=== PATIENT | female | born 1970 | race Caucasian/White ===

== ENCOUNTER 2019-10-22 11:41 | Observation (INO) | payer BC, SELFPAY ==
[2019-10-22] MEDS ORDERED: Sodium Chloride 0.9% 10 ML Syringe FLUSH PRN (11:50)
[2019-10-22] MEDS ORDERED: Sodium Chloride 0.9% 2.5 ML Syringe FLUSH PRN (11:50)
[2019-10-22 12:21] LABS: BLOOD UREA NITROGEN,BUN 19 mg/dL (7.0-18.0); CARBON DIOXIDE,CO2 23.3 mmol/L (21.0-32.0); CHLORIDE,CL 105 mmol/L (98-107); GLUCOSE RANDOM 112 mg/dL (74-106); POTASSIUM,K 4.1 mmol/L (3.5-5.1); SODIUM,NA 141 mmol/L (136-145)
--- NOTE | 2019-10-22 12:38 | CR ---
Chest: Portable view of the chest was obtained. Comparison: No prior chest imaging. Heart size and mediastinum are normal. Lungs are clear with no acute parenchymal change. Scattered disc space narrowing and endplate spurring is noted within the spine. Impression: 1. Nothing acute is seen on portable chest x-ray. Diagnostic code #2 This report was dictated in [place] Standard Time
--- NOTE | 2019-10-22 13:10 | EDM.PDOC ---
ED HPI GENERAL MEDICAL PROBLEM - General Chief Complaint: Chest Pain Stated Complaint: HEART ATTACK Time Seen by Provider: 10/22/19 12:02 - History of Present Illness INITIAL COMMENTS - FREE TEXT/NARRATIVE: 49-year-old female history of TIA in the past presented to ER for sudden onset chest pain radiating to the left arm radiating to the left side of her jaw. The pain was associated with transient tingling in the left arm. IT was associated with diaphoresis and shortness of breath. Onset was around 11 AM day of presentation to ER. No nausea no vomiting no abdominal pain. The pain did not radiate to her back. The pain did not radiate to the abdomen. Via EMS the patient received aspirin also received sublingual nitro. after The sublingual nitro the pain improved. When I evaluated the patient the pain had improved. Numbness had resolved. Location: Reports: Chest Quality: Reports: Ache Severity: Moderate Improves with: Reports: Medication Associated Symptoms: Reports: Shortness of Breath Treatments RECEIVING ASSOCIATE: Reports: Aspirin Chest Pain Score (Numeric/FACES): 5 - Related Data Allergies Allergy/AdvReac Type Severity Reaction Status Date / Time codeine Allergy Other Verified 10/22/19 11:49 Home Meds: Home Meds . [No Known Home Meds] 10/22/19 [History] Past Medical History Musculoskeletal History: Reports: None Neurological History: Reports: TIA - Infectious Disease History Infectious Disease History: Reports: Chicken Pox, Measles - Past Surgical History Neurological Surgical History: Reports: None Musculoskeletal Surgical History: Reports: Arthroscopic Knee Other Musculoskeletal Surgeries/Procedures:: Left knee arthroscopy Social & Family History - Family History Family Medical History: Noncontributory - Tobacco Use Smoking Status *Q: Never Smoker Second Hand Smoke Exposure: No - Caffeine Use Caffeine Use: Reports: None - Recreational Drug Use Recreational Drug Use: No ED ROS GENERAL - Review of Systems Review Of Systems: See Below Constitutional: Reports: No Symptoms HEENT: Reports: No Symptoms Respiratory: Reports: No Symptoms Cardiovascular: Reports: Chest Pain Endocrine: Reports: No Symptoms GI/Abdominal: Reports: No Symptoms : Reports: No Symptoms Musculoskeletal: Reports: No Symptoms Skin: Reports: No Symptoms Neurological: Reports: No Symptoms Psychiatric: Reports: No Symptoms Hematologic/Lymphatic: Reports: No Symptoms Immunologic: Reports: No Symptoms ED EXAM, GENERAL - Physical Exam Exam: See Below Exam Limited By: Altered Mental Status General Appearance: Alert, No Apparent Distress Eye Exam: Bilateral Eye: EOMI Nose: Normal Inspection Throat/Mouth: Normal Inspection Head: Atraumatic, Normocephalic Neck: Supple, Non-Tender, Full Range of Motion Respiratory/Chest: No Respiratory Distress, Lungs Clear, Normal Breath Sounds, No Accessory Muscle Use Cardiovascular: Normal Peripheral Pulses, Regular Rate, Rhythm, No Edema, No Gallop, No JVD, No Murmur, No Rub Peripheral Pulses: 3+: Radial (L), Radial (R), Dorsalis Pedis (L), Dorsalis Pedis (R) GI/Abdominal: Soft, Non-Tender, No Organomegaly, No Distention (Female) Exam: Normal External Exam Rectal (Female) Exam: Normal Exam Back Exam: Normal Inspection Extremities: Non-Tender, No Pedal Edema, Other (no calf swelling or tenderness ) Neurological: Alert, Normal Cognition, Normal Gait, Normal Reflexes Psychiatric: Normal Affect Skin Exam: Warm EKG INTERPRETATION Rhythm: NSR QRS: Normal ST-T: Normal QT: Normal (no ischemic changes) Course - Vital Signs Last Recorded V/S: Last Vital Signs Temp 98.3 F 10/22/19 11:45 Pulse 84 10/22/19 13:15 Resp 16 10/22/19 13:15 BP 124/70 10/22/19 13:15 Pulse Ox 96 10/22/19 13:15 - Orders/Labs/Meds Orders: Active Orders 24 hr Category Date Time Status Admission Status [Patient Status] [ADT] Stat ADT 10/22/19 13:10 Ordered EKG Documentation Completion [RC] STAT Care 10/22/19 11:50 Active Sodium Chloride 0.9% [Saline Flush] Med 10/22/19 11:50 Active 10 ml FLUSH ASDIRECTED PRN Sodium Chloride 0.9% [Saline Flush] Med 10/22/19 11:50 Active 2.5 ml FLUSH ASDIRECTED PRN Saline Lock Insert [OM.PC] Stat Oth 10/22/19 11:50 Ordered Medication Orders Sodium Chloride (Saline Flush) 10 ml FLUSH ASDIRECTED PRN PRN Reason: Keep Vein Open Sodium Chloride (Saline Flush) 2.5 ml FLUSH ASDIRECTED PRN PRN Reason: Keep Vein Open Labs: Laboratory Tests 10/22/19 10/22/19 10/22/19 Range/Units 11:40 11:40 11:40 WBC 6.77 (4.0-11.0) K/uL RBC 4.74 (4.30-5.90) M/uL Hgb 14.0 (12.0-16.0) g/dL Hct 42.6 (36.0-46.0) % MCV 89.9 (80.0-98.0) fL MCH 29.5 (27.0-32.0) pg MCHC 32.9 (31.0-37.0) g/dL RDW Std Deviation 41.0 (28.0-62.0) fl RDW Coeff of Julia 12 (11.0-15.0) % Plt Count 232 (150-400) K/uL MPV 10.20 (7.40-12.00) fL Neut % (Auto) 46.7 L (48.0-80.0) % Lymph % (Auto) 40.3 H (16.0-40.0) % [place] % (Auto) 8.6 (0.0-15.0) % Eos % (Auto) 4.1 (0.0-7.0) % Baso % (Auto) 0.3 (0.0-1.5) % Neut # (Auto) 3.2 (1.4-5.7) K/uL Lymph # (Auto) 2.7 H (0.6-2.4) K/uL [place] # (Auto) 0.6 (0.0-0.8) K/uL Eos # (Auto) 0.3 (0.0-0.7) K/uL Baso # (Auto) 0.0 (0.0-0.1) K/uL Nucleated RBC % 0.0 /100WBC Nucleated RBCs # 0 K/uL INR 0.96 Sodium 141 (136-145) mmol/L Potassium 4.1 (3.5-5.1) mmol/L Chloride 105 (98-107) mmol/L Carbon Dioxide 23.3 (21.0-32.0) mmol/L BUN 19 H (7.0-18.0) mg/dL Creatinine 0.8 (0.6-1.0) mg/dL Est Cr Clr Drug Dosing 89.97 mL/min Estimated GFR (MDRD) > 60.0 ml/min Glucose 112 H (74-106) mg/dL Calcium 9.3 (8.5-10.1) mg/dL Total Bilirubin 0.7 (0.2-1.0) mg/dL AST 23 (15-37) IU/L ALT 33 (14-63) IU/L Alkaline Phosphatase 65 (46-116) U/L Troponin I < 0.050 (0.000-0.056) ng/mL Total Protein 7.6 (6.4-8.2) g/dL Albumin 3.9 (3.4-5.0) g/dL Globulin 3.7 (2.6-4.0) g/dL Albumin/Globulin Ratio 1.1 (0.9-1.6) Urine Color Urine Appearance Urine pH (5.0-8.0) Ur Specific [place] (1.001-1.035) Urine Protein (NEGATIVE) mg/dL Urine Glucose (UA) (NEGATIVE) mg/dL Urine Ketones (NEGATIVE) mg/dL Urine Occult Blood (NEGATIVE) Urine Nitrite (NEGATIVE) Urine Bilirubin (NEGATIVE) Urine Urobilinogen (<2.0) EU/dL Ur Leukocyte Esterase (NEGATIVE) 10/22/19 Range/Units 12:44 WBC (4.0-11.0) K/uL RBC (4.30-5.90) M/uL Hgb (12.0-16.0) g/dL Hct (36.0-46.0) % MCV (80.0-98.0) fL MCH (27.0-32.0) pg MCHC (31.0-37.0) g/dL RDW Std Deviation (28.0-62.0) fl RDW Coeff of Julia (11.0-15.0) % Plt Count (150-400) K/uL MPV (7.40-12.00) fL Neut % (Auto) (48.0-80.0) % Lymph % (Auto) (16.0-40.0) % [place] % (Auto) (0.0-15.0) % Eos % (Auto) (0.0-7.0) % Baso % (Auto) (0.0-1.5) % Neut # (Auto) (1.4-5.7) K/uL Lymph # (Auto) (0.6-2.4) K/uL [place] # (Auto) (0.0-0.8) K/uL Eos # (Auto) (0.0-0.7) K/uL Baso # (Auto) (0.0-0.1) K/uL Nucleated RBC % /100WBC Nucleated RBCs # K/uL INR Sodium (136-145) mmol/L Potassium (3.5-5.1) mmol/L Chloride (98-107) mmol/L Carbon Dioxide (21.0-32.0) mmol/L BUN (7.0-18.0) mg/dL Creatinine (0.6-1.0) mg/dL Est Cr Clr Drug Dosing mL/min Estimated GFR (MDRD) ml/min Glucose (74-106) mg/dL Calcium (8.5-10.1) mg/dL Total Bilirubin (0.2-1.0) mg/dL AST (15-37) IU/L ALT (14-63) IU/L Alkaline Phosphatase (46-116) U/L Troponin I (0.000-0.056) ng/mL Total Protein (6.4-8.2) g/dL Albumin (3.4-5.0) g/dL Globulin (2.6-4.0) g/dL Albumin/Globulin Ratio (0.9-1.6) Urine Color YELLOW Urine Appearance CLEAR Urine pH 5.0 (5.0-8.0) Ur Specific [place] >= 1.030 (1.001-1.035) Urine Protein NEGATIVE (NEGATIVE) mg/dL Urine Glucose (UA) NEGATIVE (NEGATIVE) mg/dL Urine Ketones NEGATIVE (NEGATIVE) mg/dL Urine Occult Blood NEGATIVE (NEGATIVE) Urine Nitrite NEGATIVE (NEGATIVE) Urine Bilirubin NEGATIVE (NEGATIVE) Urine Urobilinogen 0.2 (<2.0) EU/dL Ur Leukocyte Esterase NEGATIVE (NEGATIVE) Meds: Medications Generic Name Dose Route Start Last Admin Trade Name Freq PRN Reason Stop Dose Admin Sodium Chloride 10 ml 10/22/19 11:50 Saline Flush FLUSH ASDIRECTED PRN Keep Vein Open Sodium Chloride 2.5 ml 10/22/19 11:50 Saline Flush FLUSH ASDIRECTED PRN Keep Vein Open - Re-Assessments/Exams Free Text/Narrative Re-Assessment/Exam: 10/22/19 14:22 Patient presented with chest pain that improved after nitro. He did not show any ST elevation. First troponin was negative. On reassessment patient did not have any more chest pain. She will benefit from admission for further work- up. Serial troponins. CXR Negative. no risk Factors for PE. Patient discussed with Dr Zuleta. Departure - Departure Time of Disposition: 13:10 Disposition: Admitted As Inpatient 64 Clinical Impression: Chest pain Referrals: PCP,Unobtain [Primary Care Provider] - Forms: ED Department Discharge Sepsis Event Note - Evaluation Sepsis Screening Result: No Definite Risk - Focused Exam Vital Signs: Vital Signs Temp Pulse Resp BP Pulse Ox 10/22/19 13:15 84 16 124/70 96 10/22/19 12:45 84 134/73 97 10/22/19 12:15 84 18 128/71 97 10/22/19 11:45 98.3 F 104 H 20 137/90 95 Date Exam was Performed: 10/22/19 Time Exam was Performed: 14:19 - My Orders Last 24 Hours: My Active Orders 10/22/19 11:50 EKG Documentation Completion [RC] STAT Sodium Chloride 0.9% [Saline Flush] 10 ml FLUSH ASDIRECTED PRN Sodium Chloride 0.9% [Saline Flush] 2.5 ml FLUSH ASDIRECTED PRN Saline Lock Insert [OM.PC] Stat 10/22/19 13:10 Admission Status [Patient Status] [ADT] Stat - Assessment/Plan Last 24 Hours: My Active Orders 10/22/19 11:50 EKG Documentation Completion [RC] STAT Sodium Chloride 0.9% [Saline Flush] 10 ml FLUSH ASDIRECTED PRN Sodium Chloride 0.9% [Saline Flush] 2.5 ml FLUSH ASDIRECTED PRN Saline Lock Insert [OM.PC] Stat 10/22/19 13:10 Admission Status [Patient Status] [ADT] Stat
--- NOTE | 2019-10-22 14:27 | PCM.HP.2 ---
<Kasia Alonzo M - Last Filed: 10/22/19 14:40> H&P History of Present Illness - General Date of Service: 10/22/19 Admit Problem/Dx: Admission Diagnosis/Problem Admission Diagnosis/Problem Chest pain Source of Information: Patient History Limitations: Reports: No Limitations - History of Present Illness Initial Comments - Free Text/Narative: This 49 year old female with pmh of TIA and methamphetamine use (clean for 2 years) presented to the ED via EMS today with complaints of chest pain. She reports she was at work today, moving heavy 30 lb boxes around. She started to feel light headed and clammy. Then heaviness and chest pressure started "like some one is sitting on my chest". She reports the pain radiated to her L arm and posterior neck. But she is unsure if the neck pain started first or after the chest pain. She reports dyspnea as well. She was given Nitro x 3 by EMS as well as ASA. Pain improved with Nitro, but neck pain remains. She reports she started having some neck pain 1 week ago and saw chiropractor, she was adjusted , but muscle tenseness and pain continues. She denies illness otherwise, does state she had a cold a few weeks ago, but is feeling better from that. She denies fevers, chills, or cough. No URI symptoms. No abdominal pain or dysuria. No diarrhea or constipation. Reports mild L leg swelling intermittently, especially when she is on her feet a lot. She denies history of CAD or DM. Reports TIA in the past, but denies current home medications. No smoking, no recreational drug use and occasional social alcohol use. Family has cardiac history, both of her sisters have genetic heart malformations, one has tetralogy of fallot, mother has afib and paternal grandmother had RI in her 50s and . In the ED labwork WNL. Troponin negative. VS stable. EKG SR with no ST elevation or T wave abnormalities. She is feeling improved in the ED, headache from Nitro. She will be admitted for chest pain rule out ACS. Chest Pain Score (Numeric/FACES): 5 - Related Data Allergies/Adverse Reactions: Allergies Allergy/AdvReac Type Severity Reaction Status Date / Time adhesive tape Allergy Itching Verified 10/22/19 14:40 bee venom protein (honey bee) Allergy Swelling Verified 10/22/19 14:40 codeine Allergy Other Verified 10/22/19 14:40 green pepper Allergy Airway Verified 10/22/19 14:40 Tightness Home Medications: Home Meds Melatonin/Pyridoxine HCl (B6) [Melatonin 10 mg Tablet] 1 each PO BEDTIME PRN [History] Past Medical History Cardiovascular History: Denies: Afib, Blood Clots/VTE/DVT, CAD, Hypertension, RI Respiratory History: Reports: None. Denies: Asthma, COPD Gastrointestinal History: Reports: None Musculoskeletal History: Reports: None Neurological History: Reports: TIA Endocrine/Metabolic History: Denies: Diabetes, Type II, Hypothyroidism - Infectious Disease History Infectious Disease History: Reports: Chicken Pox, Measles - Past Surgical History Neurological Surgical History: Reports: None Musculoskeletal Surgical History: Reports: Arthroscopic Knee, Other (See Below) (plate in L hand) Other Musculoskeletal Surgeries/Procedures:: Left knee arthroscopy Social & Family History - Family History Family Medical History: Noncontributory - Tobacco Use Smoking Status *Q: Never Smoker Second Hand Smoke Exposure: No - Caffeine Use Caffeine Use: Reports: None - Alcohol Use Alcohol Use History: No - Recreational Drug Use Recreational Drug Use: No Recreational Drug Last Use: 2 years ago - Living Situation & Occupation Occupation: Employed H&P Review of Systems - Review of Systems: Review Of Systems: See Below General: Reports: No Symptoms. Denies: Fever, Chills, Malaise, Weakness HEENT: Reports: No Symptoms. Denies: Headaches, Sinus Congestion, Sore Throat Pulmonary: Reports: No Symptoms. Denies: Shortness of Breath Cardiovascular: Reports: Chest Pain (improved now) Gastrointestinal: Reports: No Symptoms. Denies: Abdominal Pain, Black Stool, Bloody Stool Musculoskeletal: Reports: Neck Pain Skin: Reports: No Symptoms Neurological: Reports: No Symptoms Hematologic/Lymphatic: Reports: No Symptoms Immunologic: Reports: No Symptoms Exam - Exam Exam: See Below - Vital Signs Vital Signs: Last Vital Signs Temp 98.3 F 10/22/19 11:45 Pulse 93 10/22/19 14:26 Resp 16 10/22/19 13:15 BP 121/72 10/22/19 14:26 Pulse Ox 97 10/22/19 14:26 Weight: 88.451 kg - Exam General: Alert, Oriented, Cooperative HEENT: Conjunctiva Clear, Mucosa Moist & Kerby, Posterior Pharynx Clear Lungs: Clear to Auscultation, Normal Respiratory Effort Cardiovascular: Regular Rate, Regular Rhythm. No: Systolic Murmur GI/Abdominal Exam: Normal Bowel Sounds, Soft, Non-Tender Extremities: Normal Inspection, Normal Range of Motion, Non-Tender, No Pedal Edema Neuro Extensive - Mental Status: Alert, Oriented x3, Normal Mood/Affect Neuro Extensive - Motor, Sensory, Reflexes: CN II-XII Intact Psychiatric: Alert, Normal Affect, Normal Mood - Patient Data Lab Results Last 24 hrs: Laboratory Results - last 24 hr 10/22/19 10/22/19 10/22/19 Range/Units 11:40 11:40 11:40 WBC 6.77 (4.0-11.0) K/uL RBC 4.74 (4.30-5.90) M/uL Hgb 14.0 (12.0-16.0) g/dL Hct 42.6 (36.0-46.0) % MCV 89.9 (80.0-98.0) fL MCH 29.5 (27.0-32.0) pg MCHC 32.9 (31.0-37.0) g/dL RDW Std Deviation 41.0 (28.0-62.0) fl RDW Coeff of Julia 12 (11.0-15.0) % Plt Count 232 (150-400) K/uL MPV 10.20 (7.40-12.00) fL Neut % (Auto) 46.7 L (48.0-80.0) % Lymph % (Auto) 40.3 H (16.0-40.0) % Stokes % (Auto) 8.6 (0.0-15.0) % Eos % (Auto) 4.1 (0.0-7.0) % Baso % (Auto) 0.3 (0.0-1.5) % Neut # (Auto) 3.2 (1.4-5.7) K/uL Lymph # (Auto) 2.7 H (0.6-2.4) K/uL Stokes # (Auto) 0.6 (0.0-0.8) K/uL Eos # (Auto) 0.3 (0.0-0.7) K/uL Baso # (Auto) 0.0 (0.0-0.1) K/uL Nucleated RBC % 0.0 /100WBC Nucleated RBCs # 0 K/uL INR 0.96 Sodium 141 (136-145) mmol/L Potassium 4.1 (3.5-5.1) mmol/L Chloride 105 (98-107) mmol/L Carbon Dioxide 23.3 (21.0-32.0) mmol/L BUN 19 H (7.0-18.0) mg/dL Creatinine 0.8 (0.6-1.0) mg/dL Est Cr Clr Drug Dosing 89.97 mL/min Estimated GFR (MDRD) > 60.0 ml/min Glucose 112 H (74-106) mg/dL Calcium 9.3 (8.5-10.1) mg/dL Total Bilirubin 0.7 (0.2-1.0) mg/dL AST 23 (15-37) IU/L ALT 33 (14-63) IU/L Alkaline Phosphatase 65 (46-116) U/L Troponin I < 0.050 (0.000-0.056) ng/mL Total Protein 7.6 (6.4-8.2) g/dL Albumin 3.9 (3.4-5.0) g/dL Globulin 3.7 (2.6-4.0) g/dL Albumin/Globulin Ratio 1.1 (0.9-1.6) Urine Color Urine Appearance Urine pH (5.0-8.0) Ur Specific Sanborn (1.001-1.035) Urine Protein (NEGATIVE) mg/dL Urine Glucose (UA) (NEGATIVE) mg/dL Urine Ketones (NEGATIVE) mg/dL Urine Occult Blood (NEGATIVE) Urine Nitrite (NEGATIVE) Urine Bilirubin (NEGATIVE) Urine Urobilinogen (<2.0) EU/dL Ur Leukocyte Esterase (NEGATIVE) 10/22/19 Range/Units 12:44 WBC (4.0-11.0) K/uL RBC (4.30-5.90) M/uL Hgb (12.0-16.0) g/dL Hct (36.0-46.0) % MCV (80.0-98.0) fL MCH (27.0-32.0) pg MCHC (31.0-37.0) g/dL RDW Std Deviation (28.0-62.0) fl RDW Coeff of Julia (11.0-15.0) % Plt Count (150-400) K/uL MPV (7.40-12.00) fL Neut % (Auto) (48.0-80.0) % Lymph % (Auto) (16.0-40.0) % Stokes % (Auto) (0.0-15.0) % Eos % (Auto) (0.0-7.0) % Baso % (Auto) (0.0-1.5) % Neut # (Auto) (1.4-5.7) K/uL Lymph # (Auto) (0.6-2.4) K/uL Stokes # (Auto) (0.0-0.8) K/uL Eos # (Auto) (0.0-0.7) K/uL Baso # (Auto) (0.0-0.1) K/uL Nucleated RBC % /100WBC Nucleated RBCs # K/uL INR Sodium (136-145) mmol/L Potassium (3.5-5.1) mmol/L Chloride (98-107) mmol/L Carbon Dioxide (21.0-32.0) mmol/L BUN (7.0-18.0) mg/dL Creatinine (0.6-1.0) mg/dL Est Cr Clr Drug Dosing mL/min Estimated GFR (MDRD) ml/min Glucose (74-106) mg/dL Calcium (8.5-10.1) mg/dL Total Bilirubin (0.2-1.0) mg/dL AST (15-37) IU/L ALT (14-63) IU/L Alkaline Phosphatase (46-116) U/L Troponin I (0.000-0.056) ng/mL Total Protein (6.4-8.2) g/dL Albumin (3.4-5.0) g/dL Globulin (2.6-4.0) g/dL Albumin/Globulin Ratio (0.9-1.6) Urine Color YELLOW Urine Appearance CLEAR Urine pH 5.0 (5.0-8.0) Ur Specific Sanborn >= 1.030 (1.001-1.035) Urine Protein NEGATIVE (NEGATIVE) mg/dL Urine Glucose (UA) NEGATIVE (NEGATIVE) mg/dL Urine Ketones NEGATIVE (NEGATIVE) mg/dL Urine Occult Blood NEGATIVE (NEGATIVE) Urine Nitrite NEGATIVE (NEGATIVE) Urine Bilirubin NEGATIVE (NEGATIVE) Urine Urobilinogen 0.2 (<2.0) EU/dL Ur Leukocyte Esterase NEGATIVE (NEGATIVE) Result Diagrams: 10/22/19 11:40 10/22/19 11:40 EKG INTERPRETATION EKG Date: 10/22/19 Rhythm: NSR P-Wave: Present QRS: Normal ST-T: Normal QT: Normal Sepsis Event Note - Evaluation Sepsis Screening Result: No Definite Risk - Focused Exam Vital Signs: Vital Signs Temp Pulse Resp BP Pulse Ox 10/22/19 14:26 93 121/72 97 10/22/19 13:15 84 16 124/70 96 10/22/19 12:45 84 134/73 97 10/22/19 12:15 84 18 128/71 97 10/22/19 11:45 98.3 F 104 H 20 137/90 95 Date Exam was Performed: 10/22/19 Time Exam was Performed: 14:40 - Problem List (1) Chest pain SNOMED Code(s): 48571460 ICD Code: R07.9 - CHEST PAIN, UNSPECIFIED Status: Acute Current Visit: Yes (2) Hx-TIA (transient ischemic attack) SNOMED Code(s): 610881467 ICD Code: Z86.73 - PRSNL HX OF TIA (TIA), AND CEREB INFRC W/O RESID DEFICITS Status: Chronic Current Visit: Yes Problem List Initiated/Reviewed/Updated: Yes Orders Last 24hrs: Active Orders 24 hr Category Date Time Status Admission Status [Patient Status] [ADT] Stat ADT 10/22/19 13:10 Active EKG Documentation Completion [RC] STAT Care 10/22/19 11:50 Active Telemetry Monitoring [Cardiac Monitoring] [RC] . Care 10/22/19 14:09 Active DIRECTED Sodium Chloride 0.9% [Saline Flush] Med 10/22/19 11:50 Active 10 ml FLUSH ASDIRECTED PRN Sodium Chloride 0.9% [Saline Flush] Med 10/22/19 11:50 Active 2.5 ml FLUSH ASDIRECTED PRN Saline Lock Insert [OM.PC] Stat Oth 10/22/19 11:50 Ordered Medication Orders Sodium Chloride (Saline Flush) 10 ml FLUSH ASDIRECTED PRN PRN Reason: Keep Vein Open Sodium Chloride (Saline Flush) 2.5 ml FLUSH ASDIRECTED PRN PRN Reason: Keep Vein Open Assessment/Plan Comment:: This 49 year old female admitted with chest pain rule out ACS 1. Chest pain rule our ACS: - Trend troponins - Monitor on telemetry - Obtain lipid panel, A1c and TSH - Obtain ECHO due to family hx of cardiac malformations - ASA daily - Statin therapy, will start due to history TIA Diet: Heart healthy VTE prophylaxis: SCDs CODE Status: Full code Disposition 1 day - Mortality Measure Prognosis:: Good <Edi Prieto - Last Filed: 10/22/19 19:50> H&P History of Present Illness - General Admit Problem/Dx: Admission Diagnosis/Problem Admission Diagnosis/Problem Chest pain Exam - Vital Signs Vital Signs: Last Vital Signs Temp 36.4 C 10/22/19 14:28 Pulse 86 10/22/19 14:28 Resp 16 10/22/19 14:28 BP 123/67 10/22/19 14:28 Pulse Ox 98 10/22/19 14:28 - Patient Data Lab Results Last 24 hrs: Laboratory Results - last 24 hr 10/22/19 10/22/19 10/22/19 Range/Units 11:40 11:40 11:40 WBC 6.77 (4.0-11.0) K/uL RBC 4.74 (4.30-5.90) M/uL Hgb 14.0 (12.0-16.0) g/dL Hct 42.6 (36.0-46.0) % MCV 89.9 (80.0-98.0) fL MCH 29.5 (27.0-32.0) pg MCHC 32.9 (31.0-37.0) g/dL RDW Std Deviation 41.0 (28.0-62.0) fl RDW Coeff of Julia 12 (11.0-15.0) % Plt Count 232 (150-400) K/uL MPV 10.20 (7.40-12.00) fL Neut % (Auto) 46.7 L (48.0-80.0) % Lymph % (Auto) 40.3 H (16.0-40.0) % Stokes % (Auto) 8.6 (0.0-15.0) % Eos % (Auto) 4.1 (0.0-7.0) % Baso % (Auto) 0.3 (0.0-1.5) % Neut # (Auto) 3.2 (1.4-5.7) K/uL Lymph # (Auto) 2.7 H (0.6-2.4) K/uL Stokes # (Auto) 0.6 (0.0-0.8) K/uL Eos # (Auto) 0.3 (0.0-0.7) K/uL Baso # (Auto) 0.0 (0.0-0.1) K/uL Nucleated RBC % 0.0 /100WBC Nucleated RBCs # 0 K/uL INR 0.96 Sodium 141 (136-145) mmol/L Potassium 4.1 (3.5-5.1) mmol/L Chloride 105 (98-107) mmol/L Carbon Dioxide 23.3 (21.0-32.0) mmol/L BUN 19 H (7.0-18.0) mg/dL Creatinine 0.8 (0.6-1.0) mg/dL Est Cr Clr Drug Dosing 89.97 mL/min Estimated GFR (MDRD) > 60.0 ml/min Glucose 112 H (74-106) mg/dL Hemoglobin A1c (4.5-6.2) % Calcium 9.3 (8.5-10.1) mg/dL Total Bilirubin 0.7 (0.2-1.0) mg/dL AST 23 (15-37) IU/L ALT 33 (14-63) IU/L Alkaline Phosphatase 65 (46-116) U/L Troponin I < 0.050 (0.000-0.056) ng/mL Total Protein 7.6 (6.4-8.2) g/dL Albumin 3.9 (3.4-5.0) g/dL Globulin 3.7 (2.6-4.0) g/dL Albumin/Globulin Ratio 1.1 (0.9-1.6) Triglycerides (0-200) mg/dL Cholesterol (50-200) mg/dL LDL Cholesterol, Calc (60-180) mg/dL VLDL Cholesterol (5-55) mg/dL HDL Cholesterol (40-60) mg/dL Cholesterol/HDL Ratio (3.3-6.0) TSH 3rd Generation (0.36-3.74) uIU/mL HCG, Qual (NEG) Urine Color Urine Appearance Urine pH (5.0-8.0) Ur Specific Sanborn (1.001-1.035) Urine Protein (NEGATIVE) mg/dL Urine Glucose (UA) (NEGATIVE) mg/dL Urine Ketones (NEGATIVE) mg/dL Urine Occult Blood (NEGATIVE) Urine Nitrite (NEGATIVE) Urine Bilirubin (NEGATIVE) Urine Urobilinogen (<2.0) EU/dL Ur Leukocyte Esterase (NEGATIVE) 10/22/19 10/22/19 10/22/19 Range/Units 11:40 11:40 12:44 WBC (4.0-11.0) K/uL RBC (4.30-5.90) M/uL Hgb (12.0-16.0) g/dL Hct (36.0-46.0) % MCV (80.0-98.0) fL MCH (27.0-32.0) pg MCHC (31.0-37.0) g/dL RDW Std Deviation (28.0-62.0) fl RDW Coeff of Julia (11.0-15.0) % Plt Count (150-400) K/uL MPV (7.40-12.00) fL Neut % (Auto) (48.0-80.0) % Lymph % (Auto) (16.0-40.0) % Stokes % (Auto) (0.0-15.0) % Eos % (Auto) (0.0-7.0) % Baso % (Auto) (0.0-1.5) % Neut # (Auto) (1.4-5.7) K/uL Lymph # (Auto) (0.6-2.4) K/uL Stokes # (Auto) (0.0-0.8) K/uL Eos # (Auto) (0.0-0.7) K/uL Baso # (Auto) (0.0-0.1) K/uL Nucleated RBC % /100WBC Nucleated RBCs # K/uL INR Sodium (136-145) mmol/L Potassium (3.5-5.1) mmol/L Chloride (98-107) mmol/L Carbon Dioxide (21.0-32.0) mmol/L BUN (7.0-18.0) mg/dL Creatinine (0.6-1.0) mg/dL Est Cr Clr Drug Dosing mL/min Estimated GFR (MDRD) ml/min Glucose (74-106) mg/dL Hemoglobin A1c 5.8 (4.5-6.2) % Calcium (8.5-10.1) mg/dL Total Bilirubin (0.2-1.0) mg/dL AST (15-37) IU/L ALT (14-63) IU/L Alkaline Phosphatase (46-116) U/L Troponin I (0.000-0.056) ng/mL Total Protein (6.4-8.2) g/dL Albumin (3.4-5.0) g/dL Globulin (2.6-4.0) g/dL Albumin/Globulin Ratio (0.9-1.6) Triglycerides 77 (0-200) mg/dL Cholesterol 199 (50-200) mg/dL LDL Cholesterol, Calc 119 (60-180) mg/dL VLDL Cholesterol 15 (5-55) mg/dL HDL Cholesterol 65 H (40-60) mg/dL Cholesterol/HDL Ratio 3.1 L (3.3-6.0) TSH 3rd Generation (0.36-3.74) uIU/mL HCG, Qual (NEG) Urine Color YELLOW Urine Appearance CLEAR Urine pH 5.0 (5.0-8.0) Ur Specific Sanborn >= 1.030 (1.001-1.035) Urine Protein NEGATIVE (NEGATIVE) mg/dL Urine Glucose (UA) NEGATIVE (NEGATIVE) mg/dL Urine Ketones NEGATIVE (NEGATIVE) mg/dL Urine Occult Blood NEGATIVE (NEGATIVE) Urine Nitrite NEGATIVE (NEGATIVE) Urine Bilirubin NEGATIVE (NEGATIVE) Urine Urobilinogen 0.2 (<2.0) EU/dL Ur Leukocyte Esterase NEGATIVE (NEGATIVE) 10/22/19 10/22/19 10/22/19 Range/Units 15:10 15:10 15:10 WBC (4.0-11.0) K/uL RBC (4.30-5.90) M/uL Hgb (12.0-16.0) g/dL Hct (36.0-46.0) % MCV (80.0-98.0) fL MCH (27.0-32.0) pg MCHC (31.0-37.0) g/dL RDW Std Deviation (28.0-62.0) fl RDW Coeff of Julia (11.0-15.0) % Plt Count (150-400) K/uL MPV (7.40-12.00) fL Neut % (Auto) (48.0-80.0) % Lymph % (Auto) (16.0-40.0) % Stokes % (Auto) (0.0-15.0) % Eos % (Auto) (0.0-7.0) % Baso % (Auto) (0.0-1.5) % Neut # (Auto) (1.4-5.7) K/uL Lymph # (Auto) (0.6-2.4) K/uL Stokes # (Auto) (0.0-0.8) K/uL Eos # (Auto) (0.0-0.7) K/uL Baso # (Auto) (0.0-0.1) K/uL Nucleated RBC % /100WBC Nucleated RBCs # K/uL INR Sodium (136-145) mmol/L Potassium (3.5-5.1) mmol/L Chloride (98-107) mmol/L Carbon Dioxide (21.0-32.0) mmol/L BUN (7.0-18.0) mg/dL Creatinine (0.6-1.0) mg/dL Est Cr Clr Drug Dosing mL/min Estimated GFR (MDRD) ml/min Glucose (74-106) mg/dL Hemoglobin A1c (4.5-6.2) % Calcium (8.5-10.1) mg/dL Total Bilirubin (0.2-1.0) mg/dL AST (15-37) IU/L ALT (14-63) IU/L Alkaline Phosphatase (46-116) U/L Troponin I < 0.050 (0.000-0.056) ng/mL Total Protein (6.4-8.2) g/dL Albumin (3.4-5.0) g/dL Globulin (2.6-4.0) g/dL Albumin/Globulin Ratio (0.9-1.6) Triglycerides (0-200) mg/dL Cholesterol (50-200) mg/dL LDL Cholesterol, Calc (60-180) mg/dL VLDL Cholesterol (5-55) mg/dL HDL Cholesterol (40-60) mg/dL Cholesterol/HDL Ratio (3.3-6.0) TSH 3rd Generation 0.96 (0.36-3.74) uIU/mL HCG, Qual NEGATIVE (NEG) Urine Color Urine Appearance Urine pH (5.0-8.0) Ur Specific Sanborn (1.001-1.035) Urine Protein (NEGATIVE) mg/dL Urine Glucose (UA) (NEGATIVE) mg/dL Urine Ketones (NEGATIVE) mg/dL Urine Occult Blood (NEGATIVE) Urine Nitrite (NEGATIVE) Urine Bilirubin (NEGATIVE) Urine Urobilinogen (<2.0) EU/dL Ur Leukocyte Esterase (NEGATIVE) 10/22/19 Range/Units 17:54 WBC (4.0-11.0) K/uL RBC (4.30-5.90) M/uL Hgb (12.0-16.0) g/dL Hct (36.0-46.0) % MCV (80.0-98.0) fL MCH (27.0-32.0) pg MCHC (31.0-37.0) g/dL RDW Std Deviation (28.0-62.0) fl RDW Coeff of Julia (11.0-15.0) % Plt Count (150-400) K/uL MPV (7.40-12.00) fL Neut % (Auto) (48.0-80.0) % Lymph % (Auto) (16.0-40.0) % Stokes % (Auto) (0.0-15.0) % Eos % (Auto) (0.0-7.0) % Baso % (Auto) (0.0-1.5) % Neut # (Auto) (1.4-5.7) K/uL Lymph # (Auto) (0.6-2.4) K/uL Stokes # (Auto) (0.0-0.8) K/uL Eos # (Auto) (0.0-0.7) K/uL Baso # (Auto) (0.0-0.1) K/uL Nucleated RBC % /100WBC Nucleated RBCs # K/uL INR Sodium (136-145) mmol/L Potassium (3.5-5.1) mmol/L Chloride (98-107) mmol/L Carbon Dioxide (21.0-32.0) mmol/L BUN (7.0-18.0) mg/dL Creatinine (0.6-1.0) mg/dL Est Cr Clr Drug Dosing mL/min Estimated GFR (MDRD) ml/min Glucose (74-106) mg/dL Hemoglobin A1c (4.5-6.2) % Calcium (8.5-10.1) mg/dL Total Bilirubin (0.2-1.0) mg/dL AST (15-37) IU/L ALT (14-63) IU/L Alkaline Phosphatase (46-116) U/L Troponin I < 0.050 (0.000-0.056) ng/mL Total Protein (6.4-8.2) g/dL Albumin (3.4-5.0) g/dL Globulin (2.6-4.0) g/dL Albumin/Globulin Ratio (0.9-1.6) Triglycerides (0-200) mg/dL Cholesterol (50-200) mg/dL LDL Cholesterol, Calc (60-180) mg/dL VLDL Cholesterol (5-55) mg/dL HDL Cholesterol (40-60) mg/dL Cholesterol/HDL Ratio (3.3-6.0) TSH 3rd Generation (0.36-3.74) uIU/mL HCG, Qual (NEG) Urine Color Urine Appearance Urine pH (5.0-8.0) Ur Specific Sanborn (1.001-1.035) Urine Protein (NEGATIVE) mg/dL Urine Glucose (UA) (NEGATIVE) mg/dL Urine Ketones (NEGATIVE) mg/dL Urine Occult Blood (NEGATIVE) Urine Nitrite (NEGATIVE) Urine Bilirubin (NEGATIVE) Urine Urobilinogen (<2.0) EU/dL Ur Leukocyte Esterase (NEGATIVE) Result Diagrams: 10/22/19 11:40 10/22/19 11:40 Sepsis Event Note - Focused Exam Vital Signs: Vital Signs Temp Pulse Resp BP BP Pulse Ox Pulse Ox 10/22/19 14:28 36.4 C 86 16 123/67 98 98 10/22/19 14:26 93 121/72 97 10/22/19 13:15 84 16 124/70 96 10/22/19 12:45 84 134/73 97 10/22/19 12:15 84 18 128/71 97 10/22/19 11:45 36.8 C 104 H 20 137/90 95 Date Exam was Performed: 10/22/19 Time Exam was Performed: 19:47 Orders Last 24hrs: Active Orders 24 hr Category Date Time Status Admission Status [Patient Status] [ADT] Stat ADT 10/22/19 13:10 Active Antiembolic Devices [RC] PER UNIT ROUTINE Care 10/22/19 14:35 Active EKG Documentation Completion [RC] STAT Care 10/22/19 11:50 Active Influenza Vaccine Charge [RC] .DISCHARGE Care 10/22/19 14:51 Active Intake and Output [RC] Q12H Care 10/22/19 14:35 Active Oxygen Therapy [RC] PRN Care 10/22/19 14:28 Active Telemetry Monitoring [Cardiac Monitoring] [RC] . Care 10/22/19 14:09 Active DIRECTED Up ad Vale [RC] ASDIRECTED Care 10/22/19 14:33 Active VTE/DVT Education [RC] PER UNIT ROUTINE Care 10/22/19 14:28 Active Vital Signs [RC] Q4H Care 10/22/19 14:28 Active Heart Healthy Diet [DIET] Diet 10/22/19 Lunch Active Ang Head wo Cont [MR] Routine Exams 10/22/19 19:45 Ordered Ang Neck w Cont [MR] Routine Exams 10/22/19 19:45 Ordered Brain wo Cont [MR] Routine Exams 10/22/19 19:45 Ordered Echo Comp wo Cont [US] Urgent Exams 10/22/19 14:38 Taken Acetaminophen [Tylenol] Med 10/22/19 14:33 Active 650 mg PO Q4H PRN Aspirin Med 10/23/19 09:00 Active 81 mg PO DAILY Ondansetron [Zofran] Med 10/22/19 14:33 Active 4 mg IVPUSH Q4H PRN Sodium Chloride 0.9% [Saline Flush] Med 10/22/19 11:50 Active 10 ml FLUSH ASDIRECTED PRN Sodium Chloride 0.9% [Saline Flush] Med 10/22/19 11:50 Active 2.5 ml FLUSH ASDIRECTED PRN atorvaSTATin [Lipitor] Med 10/22/19 21:00 Active 10 mg PO BEDTIME Saline Lock Insert [OM.PC] Stat Oth 10/22/19 11:50 Ordered Sequential Compression Device [OM.PC] Per Unit Routine Oth 10/22/19 14:35 Ordered Resuscitation Status Routine Resus Stat 10/22/19 14:28 Ordered Medication Orders Acetaminophen (Tylenol) 650 mg PO Q4H PRN PRN Reason: Pain (Mild 1-3)/fever Last Admin: 10/22/19 17:36 Dose: 650 mg Aspirin (Aspirin) 81 mg PO DAILY COLLEEN Atorvastatin Calcium (Lipitor) 10 mg PO BEDTIME COLLEEN Ondansetron HCl (Zofran) 4 mg IVPUSH Q4H PRN PRN Reason: Nausea Sodium Chloride (Saline Flush) 10 ml FLUSH ASDIRECTED PRN PRN Reason: Keep Vein Open Sodium Chloride (Saline Flush) 2.5 ml FLUSH ASDIRECTED PRN PRN Reason: Keep Vein Open Assessment/Plan Comment:: Agree with the note above. Patient states she feel her left hand is heavier than right and feels its numb, states her speech feels little slower although not too sure about that, these symptoms started this morning along with the chest pain. Will addition to ACS work up will obtain MRI of the brain to rule out TIA/CVA.
[2019-10-22] MEDS ORDERED: Pantoprazole 40 MG in Sodium Chloride 0.9% 10 ML IV ONE (14:33)
[2019-10-22] MEDS ORDERED: Ondansetron 4 MG/2 ML SDV IVPUSH PRN (14:33)
[2019-10-22] MEDS ORDERED: Acetaminophen 325 MG Tab PO PRN (14:33)
[2019-10-22] MEDS ORDERED: FLU Vacc QS2019-20(6MOS+)/PF 60 MCG/0.5 ML SYRINGE IM ONE (15:15)
[2019-10-22 15:23] LABS: HEMOGLOBIN A1C 5.8 % (4.5-6.2)
[2019-10-22] MEDS ORDERED: atorvaSTATin 10 MG Tab PO SCH (21:00)
[2019-10-23] MEDS: Ketorolac 15 MG/ML SDV IVPUSH PRN ×3 (01:37→13:34)
[2019-10-23] MEDS ORDERED: Metoclopramide 10 MG/2 ML SDV IVPUSH ONE (08:41)
[2019-10-23] MEDS ORDERED: diphenhydrAMINE 50 MG/ML SDV IVPUSH ONE (08:41)
[2019-10-23] MEDS ORDERED: Aspirin 81 MG Tab.Chew PO SCH (09:00)
--- NOTE | 2019-10-23 09:54 | CT ---
Head CT Technique: Multiple axial sections were obtained through the brain. Intravenous contrast was not utilized. Comparison: No prior intracranial imaging. Findings: Ventricles along with basal cisterns and sulci over the convexities appear within normal limits for the patient's age. No abnormal parenchymal densities are seen. No evidence of intracranial hemorrhage. No midline shift or mass-effect is seen. Bone window settings were reviewed which show no acute calvarial abnormality. Visualized paranasal sinuses show nothing acute. Visualized mastoid sinuses show nothing acute. Impression: 1. Nothing acute is appreciated on noncontrast head CT study. Note: If patient has persistent symptoms, MRI could then be considered. Diagnostic code #1 This report was dictated in [place] Standard Time
[2019-10-23] MEDS ORDERED: Gadobenate Dimeglumine 529 MG/ML 20 ML SDV IVPUSH STA (10:38)
--- NOTE | 2019-10-23 13:21 | MR ---
MR angiogram of the brain Technique: Multiple [id number] MR angiogram sequences were obtained centered to the [place]. Multiple MIP images were obtained. Findings: Distal vertebral artery and basilar arteries appear normal. Posterior cerebral arteries are normal. Middle cerebral arteries and anterior cerebral arteries are normal. No focal areas of stenosis or occlusion is seen. No discrete aneurysm is appreciated. Impression: 1. No abnormality is appreciated on MR angiogram study of the brain. Diagnostic code #1 This report was dictated in [place] Standard Time
--- NOTE | 2019-10-23 13:21 | MR ---
MR angiogram of neck Technique: Phase contrast MR angiogram study was obtained centered to the distal carotids and carotid bifurcation. Postcontrast images were then obtained through the neck. Multiple MIP images were obtained. Findings: Common carotid arteries are patent on both sides. Vertebral arteries are patent on both sides. Proximal right external carotid artery is not optimally seen possibly due to artifact although difficult to exclude mild stenosis. Left-sided external carotid artery appears to be patent. Both internal carotid arteries are patent. Impression: 1. Artifact versus narrowing at the origin of the right external carotid artery. 2. Other portions of the neck MR angiogram study appear unremarkable. Diagnostic code #2 This report was dictated in [place] Standard Time
--- NOTE | 2019-10-23 13:21 | MR ---
MRI brain Technique: T1 sagittal and coronal; T1, T2, FLAIR and diffusion axial Comparison: No prior MRI brain, previous head CT study performed earlier on the same day. Findings: Ventricles along with basal cisterns and sulci over the convexities are within normal limits. No abnormal signal is seen within the brain parenchyma. No midline shift or mass-effect is seen. Normal signal void is seen within the major cerebral arteries within the skull base. No acute diffusion abnormalities are appreciated. Impression: 1. No abnormality is identified on MRI study of the brain. There is specifically no acute diffusion abnormalities being seen. Diagnostic code #1 This report was dictated in [place] Standard Time
--- NOTE | 2019-10-23 14:54 | PCM.DCSUM1 ---
Discharge Summary - Hospital Course Brief History: This 49 year old female with pmh of TIA and methamphetamine use ( clean for 2 years) presented to the ED via EMS today with complaints of chest pain. She reports she was at work today, moving heavy 30 lb boxes around. She started to feel light headed and clammy. Then heaviness and chest pressure started "like some one is sitting on my chest". She reports the pain radiated to her L arm and posterior neck. But she is unsure if the neck pain started first or after the chest pain. She reports dyspnea as well. She was given Nitro x 3 by EMS as well as ASA. Pain improved with Nitro, but neck pain remains. She reports she started having some neck pain 1 week ago and saw chiropractor, she was adjusted, but muscle tenseness and pain continues. She denies illness otherwise, does state she had a cold a few weeks ago, but is feeling better from that. She denies fevers, chills, or cough. No URI symptoms. No abdominal pain or dysuria. No diarrhea or constipation. Reports mild L leg swelling intermittently, especially when she is on her feet a lot. She denies history of CAD or DM. Reports TIA in the past, but denies current home medications. No smoking, no recreational drug use and occasional social alcohol use. Family has cardiac history, both of her sisters have genetic heart malformations, one has tetralogy of fallot, mother has afib and paternal grandmother had AL in her 50s and . In the ED labwork WNL. Troponin negative. VS stable. EKG SR with no ST elevation or T wave abnormalities. She is feeling improved in the ED, headache from Nitro. She will be admitted for chest pain rule out ACS. - Discharge Data Discharge Date: 10/23/19 Discharge Disposition: Home, Self-Care 01 Condition: Good - Referral to Home Health Primary Care Physician: PCP None - Discharge Diagnosis/Problem(s) (1) Chest pain SNOMED Code(s): 70476882 ICD Code: R07.9 - CHEST PAIN, UNSPECIFIED Status: Acute Current Visit: Yes (2) Hx-TIA (transient ischemic attack) SNOMED Code(s): 264134385 ICD Code: Z86.73 - PRSNL HX OF TIA (TIA), AND CEREB INFRC W/O RESID DEFICITS Status: Chronic Current Visit: Yes - Patient Instructions Diet: Regular Diet as Tolerated Activity: No Strenuous Activities Driving: Do Not Drive Showering/Bathing: May Shower Notify Provider of: Fever, Increased Pain, Swelling and Redness, Drainage, Nausea and/or Vomiting Other/Special Instructions: journal headaches - Discharge Plan *PRESCRIPTION DRUG MONITORING PROGRAM REVIEWED*: Not Applicable *COPY OF PRESCRIPTION DRUG MONITORING REPORT IN PATIENT JEREL: Not Applicable Prescriptions/Med Rec: atorvaSTATin [Lipitor] 10 mg PO BEDTIME #30 tablet Home Medications: Home Meds Melatonin/Pyridoxine HCl (B6) [Melatonin Tr 10 mg Tablet] 1 each PO BEDTIME PRN 10/22/19 [History] Acetaminophen [Tylenol] 650 mg PO Q4H PRN tablet 10/23/19 [Rx] Aspirin 81 mg PO DAILY tab.chew 10/23/19 [Rx] atorvaSTATin [Lipitor] 10 mg PO BEDTIME #30 tablet 10/23/19 [Rx] Oxygen Therapy Mode: Room Air Referrals: Bethel Pepe MD [Resident] - 11/04/19 3:45 pm PCP,Unobtain [Ordering Only Provider] - () - Discharge Summary/Plan Comment DC Time >30 min.: No Discharge Summary/Plan Comment: Admitting Diagnoses: Chest pain Discharge Diagnoses: Chest pain L hand numbness Other PMH: Migraines hx methamphetamine use, 2 years clean Maria Elena was admitted and monitored for chest pain, troponins were trended and she was monitored on telemetry with no concerns. Troponins negative, ACS ruled out. Due to family hx of cardiac concerns, ECHO obtained which was negative. She later complained of L hand numbness as well, head CT obtained which was negative. MRI brain and MRA head and neck obtained which was negative as well. This morning she complaints of migraine, which was relieved somewhat with toradol, reglan and benadryl. She reports these migraines are on and off, she was out from work three days last week for one. She has never been evaluated for them. She will be discharged home today with referral to Neurology for migraines and HX TIA, consider complicated migraine. Counseled her on keeping a headache journal for neurology to review at her appointment. She will also be sent for outpatient stress test and to establish PCP. She will be started on ASA 81 mg daily along with atorvastatin 10 mg daily. SHe is to return to ED or clinic if concerns should arise. - Patient Data Vitals - Most Recent: Last Vital Signs Temp 97.0 F 10/23/19 12:00 Pulse 84 10/23/19 12:00 Resp 16 10/23/19 12:00 BP 120/66 10/23/19 12:00 Pulse Ox 97 10/23/19 12:00 Weight - Most Recent: 88.451 kg I&O - Last 24 hours: Intake & Output 10/22/19 10/23/19 10/23/19 22:59 06:59 14:59 Intake Total 0 1660 Output Total 0 1500 Balance 0 160 Lab Results - Last 24 hrs: Laboratory Results - last 24 hr 10/22/19 10/22/19 10/22/19 Range/Units 11:40 11:40 15:10 Hemoglobin A1c 5.8 (4.5-6.2) % Troponin I < 0.050 (0.000-0.056) ng/mL Triglycerides 77 (0-200) mg/dL Cholesterol 199 (50-200) mg/dL LDL Cholesterol, Calc 119 (60-180) mg/dL VLDL Cholesterol 15 (5-55) mg/dL HDL Cholesterol 65 H (40-60) mg/dL Cholesterol/HDL Ratio 3.1 L (3.3-6.0) TSH 3rd Generation (0.36-3.74) uIU/mL HCG, Qual (NEG) 10/22/19 10/22/19 10/22/19 Range/Units 15:10 15:10 17:54 Hemoglobin A1c (4.5-6.2) % Troponin I < 0.050 (0.000-0.056) ng/mL Triglycerides (0-200) mg/dL Cholesterol (50-200) mg/dL LDL Cholesterol, Calc (60-180) mg/dL VLDL Cholesterol (5-55) mg/dL HDL Cholesterol (40-60) mg/dL Cholesterol/HDL Ratio (3.3-6.0) TSH 3rd Generation 0.96 (0.36-3.74) uIU/mL HCG, Qual NEGATIVE (NEG) Med Orders - Current: Current Medications Acetaminophen (Tylenol) 650 mg PO Q4H PRN PRN Reason: Pain (Mild 1-3)/fever Last Admin: 10/22/19 17:36 Dose: 650 mg Aspirin (Aspirin) 81 mg PO DAILY COLLEEN Last Admin: 10/23/19 09:10 Dose: 81 mg Atorvastatin Calcium (Lipitor) 10 mg PO BEDTIME [facility] Last Admin: 10/22/19 21:47 Dose: 10 mg Ketorolac Tromethamine (Toradol) 15 mg IVPUSH Q6H PRN PRN Reason: Pain Stop: 10/27/19 20:04 Last Admin: 10/23/19 13:34 Dose: 15 mg Ondansetron HCl (Zofran) 4 mg IVPUSH Q4H PRN PRN Reason: Nausea Sodium Chloride (Saline Flush) 10 ml FLUSH ASDIRECTED PRN PRN Reason: Keep Vein Open Sodium Chloride (Saline Flush) 2.5 ml FLUSH ASDIRECTED PRN PRN Reason: Keep Vein Open Discontinued Medications Diphenhydramine HCl (Benadryl) 25 mg IVPUSH ONETIME ONE Stop: 10/23/19 08:42 Last Admin: 10/23/19 09:15 Dose: 25 mg Gadobenate Dimeglumine (Multihance) 20 ml IVPUSH ONETIME STA Stop: 10/23/19 10:39 Last Admin: 10/23/19 10:40 Dose: 17 ml Pantoprazole Sodium 40 mg/ (Sodium Chloride) 10 mls @ 300 mls/hr IV ONETIME ONE Stop: 10/22/19 14:34 Last Admin: 10/22/19 15:36 Dose: 300 mls/hr Influenza Virus Vaccine (Pharmacy To Dose - Influenza Vaccine) 1 each IM ONETIME ONE Stop: 10/22/19 14:52 Influenza Virus Vaccine (Fluzone Quad [id number] Syringe) 60 mcg IM .ONCE ONE Stop: 10/22/19 15:16 Metoclopramide HCl (Reglan) 10 mg IVPUSH ONETIME ONE Stop: 10/23/19 08:42 Last Admin: 10/23/19 09:10 Dose: 10 mg
--- NOTE | 2019-10-24 11:44 | ECHO ---
EXAM DATE: 10/22/19 PATIENT'S AGE: 49 The echocardiogram report can be seen in this patient's EMR (Electronic Medical Record) in the REPORTS section. The report has also been scanned into PACS. TREV
== END 2019-10-23 17:30 | disposition home or self-care (01) ==
LOC: MW.ED 11:41 → MW.MS 14:08
PROVIDERS: ADMIT Student in an Organized Health Care Education/Training Program; ATTEND Student in an Organized Health Care Education/Training Program
DX: R07.9 Chest pain, unspecified (principal); R20.0 Anesthesia of skin; G43.909 Migraine, unspecified, not intractable, without status migrainosus; Z86.73 Personal history of transient ischemic attack (TIA), and cerebral infarction without residual deficits; Z82.49 Family history of ischemic heart disease and other diseases of the circulatory system; Z91.048 Other nonmedicinal substance allergy status; Z91.030 Bee allergy status; Z88.5 Allergy status to narcotic agent; Z91.018 Allergy to other foods
CPT/HCPCS: 36415; 70450; 70544; 70549; 70551; 71045; 80053; 80061; 81003; 83036; 84443; 84484; 84703; 85025; 85610; 93005; 93306; 96374; 96375; 96376; 99285; A9270; A9577; C9113; G0378; J1200; J1885; J2765; J7050; 99283